=== PATIENT | female | born 2000 | race Caucasian/White ===

== ENCOUNTER 2018-10-18 20:36 | Emergency (ER) | payer BC ==
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
[2018-10-18] MEDS ORDERED: Acetaminophen TAB* 325 MG PO ONE (22:07)
[2018-10-19 00:01] VITALS: BP 117/80
== END 2018-10-18 23:59 | disposition home or self-care (01) ==
LOC: ED 20:36
DX: F39 Unspecified mood [affective] disorder (principal)
CPT/HCPCS: 99285; A9270-GY